=== PATIENT | male | born 1970 | race Caucasian/White ===

== ENCOUNTER 2024-02-14 09:34 | Emergency (ER) | payer SELFPAY ==
[~2024-02-14] VITALS: Ht 177.8 cm; Wt 93.2 kg
[2024-02-14 09:38] VITALS: BP 149/79; TEMP 97.8
[2024-02-14] MEDS ORDERED: FLEXERIL 1010 MG/TAB PO (11:12)
[2024-02-14] MEDS ORDERED: MOTRIN 800800 MG/TAB PO (11:12)
[2024-02-14 11:41] VITALS: PULSE 63
== END 2024-02-14 11:41 | disposition home or self-care (01) ==
LOC: COL.ER 09:34
DX: S22.080A Wedge compression fracture of T11-T12 vertebra, initial encounter for closed fracture (principal); V89.2XXA Person injured in unspecified motor-vehicle accident, traffic, initial encounter